=== PATIENT | female | born 1985 ===

== ENCOUNTER → 2018-01-22 | Outpatient (CLI) | payer OTHER ==
[~2018-01-22] MED LIST: PREN-127 PO
[2018-01-22 10:10] LABS: PLATELET COUNT, AUTOMATED 282 K/uL (150-450)
== END ==
LOC: LAB 09:44
PROVIDERS: ATTEND Obstetrics & Gynecology
DX: Z34.91 Encounter for supervision of normal pregnancy, unspecified, first trimester (principal); R82.79 Other abnormal findings on microbiological examination of urine
CPT/HCPCS: 36415; 85025; 86592; 86762; 86850; 86900; 86901; 87088; 87340

== ENCOUNTER → 2018-05-03 | Outpatient (CLI) | payer OTHER ==
--- NOTE | 2018-05-03 14:01 | RADIOLOGY IMAGING REPORT ---
FACILITY: [facility] - [place] PATIENT NAME: Ethel Hoang : 1985 MR: [id number] V: [id number] EXAM DATE: ORDERING PHYSICIAN: JUSTIN VELA TECHNOLOGIST: Location: [facility] - [place] Patient: Ethel Hoang : 1985 Visit/Account:[id number] Date of Sevice: 05/03/2018 OB ANATOMICAL SURVEY HISTORY: Anatomic survey COMPARISON: None. TECHNIQUE: Transabdominal imaging was performed for assessment of the fetus and maternal pelvic s tructures. Transvaginal imaging was not performed. FINDINGS: Intrauterine gestations: One. presentation: The head is projecting towards the cervix and slightly to the maternal righ t. heart rate: 143 bpm. Amniotic fluid volume: Mild polyhydramnios; MORENA 20.03 cm; MVP 6 cm. Placenta: Anterior and towards the right. Uterus: Gravid, otherwise grossly unremarkable where visualized. Maternal adnexa/ovaries: Grossly unremarkable, ovaries not visualized. Cervix: Grossly long and closed. Gestational Parameters: BPD: 4.62 cm, 42nd percentile HC: 17.28 cm, 28th percentile AC: 14.83 cm, 43rd percentile FL: 3.38 cm, 59th percentile Average ultrasound age (AUA): 20 weeks/ two days Estimated age based on LMP: 20 weeks/ one days Estimated weight (EFW): 343 grams +/- 50 grams Anatomic Survey: Intracranial structures, 4-chamber heart, stomach, kidneys, urinary bladder, spine, 3-vessel cord and cord insertion are unremarkable. Two upper and two lower extremities visualized. IMPRESSION: Single viable fetus with the head presenting towards the cervix and slightly towards the maternal rig ht. The estimated gestational age by measurements is 20 weeks and two days. Estimated weight is 343 g +/- 50 grams. There is mild polyhydramnios with an amniotic fluid index of 20.03 cm Report Dictated By: Elle Sy MD at 05/03/2018 1:47 PM Report E-Signed By: Elle Sy MD at 05/03/2018 1:57 PM WSN:[email or web address]
== END ==
LOC: RAD 09:24
PROVIDERS: ATTEND Obstetrics & Gynecology
DX: Z02.9 Encounter for administrative examinations, unspecified (principal)
CPT/HCPCS: 76811

== ENCOUNTER → 2018-07-02 | Outpatient (CLI) | payer OTHER ==
[~2018-07-02] MED LIST changes: +DIPH0.5D12 IM; +FLU60VIA41 IM
[2018-07-02 09:56] LABS: PLATELET COUNT, AUTOMATED 248 K/uL (150-450)
== END ==
LOC: LAB 08:50
PROVIDERS: ATTEND Student in an Organized Health Care Education/Training Program
DX: Z34.92 Encounter for supervision of normal pregnancy, unspecified, second trimester (principal)
CPT/HCPCS: 36415; 82950; 85025

== ENCOUNTER → 2018-08-27 | Outpatient (CLI) | payer OTHER | LOC: LAB 09:23 | PROVIDERS: ATTEND Advanced Practice Midwife | DX: Z34.93 Encounter for supervision of normal pregnancy, unspecified, third trimester (principal) | CPT/HCPCS: 87081 ==

== ENCOUNTER 2018-09-05 06:59 | Inpatient (IN) | payer OTHER ==
[~2018-09-05] VITALS: Ht 160 cm; Wt 62.1 kg
[2018-09-05 07:20] VITALS: BP 97/75
--- NOTE | 2018-09-05 13:26 | Labor Progress Note ---
Labor Subjective Progress Notes Subjective Pt arrived to L&D this am after SROM at home last night 09/04 at 2300. She reports clear fluid. Feeling Movement?: Yes Vaginal Discharge/Fluid: Clear Fluid Labor Pain: Mild Neurological: No Headache Eyes: No Visual Disturbances Labor Objective Vital Signs Vital Signs Date Time Temp Pulse Resp B/P (MAP) Pulse Ox O2 Delivery O2 Flow Rate FiO2 09/05/18 07:20 98.0 101 18 97/75 (82) 95 Room Air Vaginal Discharge/Fluid?: Clear Fluid Cervical Dialation: 3 Cervical Effacement (%): 70 Cervical Consistency: Soft Cervical Position: Mid Station: -2 Presentation: Vertex Uterine Contraction Strength: Mild UC Resting Tone: Soft Fetus Estimated Weight(grams): 3200 Heart Tone Variabilty: Moderate FHT Accelerations: 15X15 FHT Decelerations: None FHT Category: I (Intermitent monitoring) General Exam General Appearance: Alert/Awake/No Acute Distress ENT: Normal Neck: No Masses Cardiovascular: Normal Rhythm & Peripheral Pulses Abdomen: Gravid - Non-Tender Assessment and Plan Hospital Day: 1 PUBLIC HEALTH SPECIALIST Assessment: Stable PUBLIC HEALTH SPECIALIST Plan: Routine Labor/Induct Care Problems: (1) PROM (premature rupture of membranes) Status: Acute Assessment & Plan: Assessment/Plan: GORAN is a 33 y.o. at 37w0d wks with an Estimated Date of Delivery: 09/19/18 dated by LMP and early US Labor state: Not in labor well-being: Category I FHT: intermittent monitoring for low risk Maternal well-being: VS, afebrile, normotensive, PROM X 15 hours @ home for large amount of clear fluid at home last virgil 09/04/18 @ 2300. PNL: GBS neg, Type/Rh AB+, rubella immune Pain Management: desires an unmedicated , comfortable now Feed: Breast PPBCM: unsure at this time c/b: Anticipate progression of labor with pitocin augmentation, re-evaluate in 2-3 hours or prn Problem Qualifiers (1) PROM (premature rupture of membranes): PROM onset of labor timing: unspecified duration between rupture of membranes and onset of labor PROM gestational age: full term Qualified Codes: O42.92 - Full-term premature rupture of membranes, unspecified as to length of time between rupture and onset of labor ROSA CARBONE CNM Sep 05, 2018 13:26
--- NOTE | 2018-09-05 13:29 | Labor Progress Note ---
Labor Subjective Progress Notes Subjective Comfortable. Not feeling any contractions. Doesn't want any other interventions at this time. Vaginal Discharge/Fluid: Bloody Show, Clear Fluid Labor Pain: Mild Neurological: No Headache, No Other Eyes: No Visual Disturbances Labor Objective Vital Signs Vital Signs Date Time Temp Pulse Resp B/P (MAP) Pulse Ox O2 Delivery O2 Flow Rate FiO2 09/05/18 07:20 98.0 101 18 97/75 (82) 95 Room Air Vaginal Discharge/Fluid?: Clear Fluid Cervical Dialation: 3 Cervical Effacement (%): 70 Presentation: Vertex Uterine Contractions(Q min): 0 Uterine Contraction Strength: Mild Fetus Heart Tones: 135 Assessment and Plan DIRECTOR OF CONTENT AND PROGRAMMING Assessment: Stable DIRECTOR OF CONTENT AND PROGRAMMING Plan: Routine Labor Care Problems: (1) PROM (premature rupture of membranes) Status: Acute Assessment & Plan: Discussed care with Leonor ANDREWS. Agree with plan to augment with either cytotec or oxytocin as patient is now 14 hours with no cervical change. GARTH JACOBS DO Sep 05, 2018 13:29
[2018-09-05] MEDS ORDERED: FAMOTIDINE(*) 20MG/50ML PREMIX 50 ML IVPB PRN (13:34)
[2018-09-05] MEDS ORDERED: ceFAZolin(*) 2GM/D5W 50ML 50 ML IVPB PRN (13:34)
[2018-09-05] MEDS ORDERED: DLR(*) 1000 ML BAG 1,000 ML IV SCH (13:34)
[2018-09-05] MEDS ORDERED: OXYTOCIN 30 UNIT/D5LR 500 ML 500 ML IV PRN (13:34)
[2018-09-05] MEDS ORDERED: LIDOCAINE/SOD BICARB 8.4% SYR SC PRN (13:35)
[2018-09-05] MEDS ORDERED: ACETAMINOPHEN 325 MG TAB PO PRN ×2 (13:35→21:55)
[2018-09-05] MEDS ORDERED: ZOLPIDEM TARTRATE 5 MG TAB PO PRN (13:35)
[2018-09-05] MEDS ORDERED: LIDOCAINE 1% LOCAL 300 MG/30ML INJ PRN (13:35)
[2018-09-05] MEDS ORDERED: TERBUTALINE SULF 1 MG/ML VIAL SUBQ PRN (13:35)
[2018-09-05] MEDS ORDERED: METOCLOPRAMIDE 10 MG/2 ML SDV IVP PRN (13:35)
[2018-09-05] MEDS ORDERED: fentaNYL CITR 100 MCG/2 ML AMP IVP PRN (13:35)
[2018-09-05] MEDS ORDERED: LIDOCAINE/SOD BICARB 8.4% SYR ONE (13:37)
--- NOTE | 2018-09-05 13:52 | History & Physical ---
History of Present Illness Age of Patient: 33 : 3 Para or TPAL: 1 EDC per LMP: Sep 19, 2018 Chief Complaint PROM at home for clear fluid at 2300 09/04/18 History Patient's Blood Type: AB Positive Rubella Status: Immune Group B Strep Screen: Negative Obstetrical History: vacuum with prior Allergies: Coded Allergies: No Known Drug Allergies (Unverified , 01/22/18) Family History: Patient reports no known family medical history. Med Rec Home Meds Reported Medications Vits W-Ca,Fe,Fa(<1MG) ( VITAMINS) 1 Each Tablet, 1 EACH PO DAILY, TAB 01/22/18 Review of Systems Constitutional: No Fever Eyes: No Vision Change Cardiovascular: No Chest Pain Respiratory: No Shortness of Breath Gastrointestinal: No Nausea, No Vomiting Genitourinary: No Dysuria Musculoskeletal: No Pain Psychiatric: No Anxiety Other Leaking of clear fluid since last virgil at home at 2300 09/04/18 Exam General Exam Vital Signs Vital Signs Date Time Temp Pulse Resp B/P (MAP) Pulse Ox O2 Delivery O2 Flow Rate FiO2 09/05/18 07:20 98.0 101 18 97/75 (82) 95 Room Air General Apperance: Alert/Awake/No Acute Distress Neuro: No Gross deficits Eyes: Normal Extraocular Movement & Vison, PERRLA ENT: Normal Cardiovascular: Regular Rate and Rhythm Respiratory: No Respiratory Distress, Clear to Auscultation Abdomen: Gravid - Non-Tender : Normal Musculoskeletal: No Weakness/Pain Extremities: No Cyanosis,Clubbing or Edema Integumentary: Skin Intact without Lesions or Rash Psychological: Alert & Oriented X3, Appropriate Mood & Affect Vaginal Discharge/Fluid?: Clear Fluid Cervical Dialation: 3 Cervical Effacement (%): 70 Cervical Consistency: Soft Station: -2 Presentation: Vertex Uterine Contraction Strength: Mild Fetus Feeling Movement?: Yes Estimated Weight(grams): 3200 Heart Tones: 130 Heart Tone Variabilty: Moderate FHT Accelerations: 15X15 FHT Decelerations: None FHT Category: I Medical Decision Making Data Points Result Diagram: 09/05/18 1358 Assessment and Plan Hospital Day: 1 DEPUTY [place] Assessment: Stable DEPUTY [place] Plan: Routine Labor Care Problems: (1) PROM (premature rupture of membranes) Assessment & Plan: Plan to wait until 11am to see if labor will start on it's own. Encourage ambulation, nutrition and hydration. Reviewed possible augmentation options R/B/A, cytotec and pitocin Problem Qualifiers (1) PROM (premature rupture of membranes): PROM onset of labor timing: unspecified duration between rupture of membranes and onset of labor PROM gestational age: full term Qualified Codes: O42.92 - Full-term premature rupture of membranes, unspecified as to length of time between rupture and onset of labor ROSA CARBONE CNM Sep 05, 2018 13:24
[2018-09-05 14:07] LABS: PLATELET COUNT, AUTOMATED 237 K/uL (150-450)
[2018-09-05] MEDS: LR(*) 1000 ML BAG 1,000 ML IV PRN ×2 (14:22→17:37)
[2018-09-05] MEDS ORDERED: BUPIVACAINE 0.5% INJ 30ML VIAL EPI PRN (15:20)
[2018-09-05] MEDS ORDERED: LIDOCAINE/PF 2% 200MG/10ML AMP 200 MG/10 ML AMPUL EPI PRN (15:20)
[2018-09-05] MEDS ORDERED: fentaNYL CITR 100 MCG/2 ML AMP IT PRN (15:20)
[2018-09-05] MEDS ORDERED: FENTANYL/ROPIVACAINE 100 ML BAG EPI PRN (15:20)
[2018-09-05] MEDS ORDERED: LIDO/EPI 2% MPF 1:200,000 20ML EPI PRN (15:20)
[2018-09-05] MEDS ORDERED: BUPIVACAINE 0.25% MPF INJ EPI PRN (15:20)
[2018-09-05] MEDS ORDERED: ONDANSETRON 4 MG/2 ML VIAL ONE (16:58)
[2018-09-05] MEDS ORDERED: EPIDURAL KEYS XX PRN (18:00)
--- NOTE | 2018-09-05 18:10 | Anesthesia OB Pre-Anes Eval ---
History of Present Illness Anesthesia Start Date: Sep 05, 2018 Anesthesia Start Time: 17:11 OB Anesthesia Diagnosis: spontaneous labor, spontaneous ROM EDC: Sep 19, 2018 : 3 Para: 1 Vital Signs: Vital Signs 09/05/18 07:20 Temp 98.0 Pulse 101 Resp 18 B/P (MAP) 97/75 (82) Pulse Ox 95 O2 Delivery Room Air Pain Ratin Result Diagram: 09/05/18 1358 Height (Inches): 63.00 Weight (Pounds): 137 Past Medical History Medical History: no pertinent history Previous Anesthesia: epidural Attended Childbirth Classes?: No Hx Anesthesia Reactions: No Hx Family Anesthesia Reaction: No Current Medications: pitocin Home Meds Reported Medications Vits W-Ca,Fe,Fa(<1MG) ( VITAMINS) 1 Each Tablet, 1 EACH PO DAILY, TAB 01/22/18 Allergies: Coded Allergies: No Known Drug Allergies (Unverified , 01/22/18) Anesthesia OB ROS Neurological: No migraines/headaches, No seizures, No neuropathy, No other ENT: Denies Tooth caps, Denies Loose teeth, Denies Chipped teeth, Denies Dentures, Denies Bridges, Denies Retainers, Denies Veneers, Denies Implants, Denies Tongue ring, Denies Other Pulmonary: No asthma, No smoker (pks/day/yrs), No other Airway Class: ll Cardiovascular ROS: No edema, No arrhythmia, No other GI ROS: clear liquids Last Solids Date: Sep 05, 2018 Last Solids Time: 13:30 Endocrine ROS: No diabetes, No gestational diabetes, No thyroid disorder, No other Musculoskeletal ROS: No low back pain, No low back injury, No scoliosis, No other ASA Classification: 2 Assessment and Plan Anesthesia Plan: MADAI CAMPA CRNA Sep 05, 2018 18:10
--- NOTE | 2018-09-05 18:10 | Labor Progress Note ---
Labor Subjective Progress Notes Subjective Comfortable s/p epidural. Reports no pain. Feeling Movement?: Yes Vaginal Discharge/Fluid: Clear Fluid Labor Pain: Comfortable Neurological: No Headache, No Other Eyes: No Visual Disturbances Labor Objective Vital Signs Vital Signs Date Time Temp Pulse Resp B/P (MAP) Pulse Ox O2 Delivery O2 Flow Rate FiO2 09/05/18 07:20 98.0 101 18 97/75 (82) 95 Room Air Cervical Dialation: 6 Fetus Heart Tones: 130 Heart Tone Variabilty: Moderate FHT Accelerations: 15X15 FHT Decelerations: None FHT Category: I Other Result Diagram: 09/05/18 9806 Assessment and Plan Problems: (1) PROM (premature rupture of membranes) Status: Acute Assessment & Plan: Pt currently on Oxytocin for hypotonic contractions. Pt s/p epidural. Continue current management. Expect . Problem Qualifiers (1) PROM (premature rupture of membranes): PROM onset of labor timing: unspecified duration between rupture of membranes and onset of labor PROM gestational age: full term Qualified Codes: O42.92 - Full-term premature rupture of membranes, unspecified as to length of time between rupture and onset of labor GARTH JACOBS DO Sep 05, 2018 18:10
--- NOTE | 2018-09-05 18:13 | Procedure Note ---
Anesthetic Placement Note Anesthesia Plan: CSE Permit for Anesthesia Signed: Yes Anesthesia Technique: Patient Sitting Anesthesia Prep: Chlorhexidine Interspace: L 3-4 Local Anesthetic: 1% Lidocaine Amount Local - cc's: 3 Anesthesia Needle: 17g Touhy/Schliff Anesthesia Attempts: 1 Loss of Resistance: Normal Saline Depth of JON (cm): 5 Epidural Needle Placement: No CSF, No Blood, No Parasthesia Intrathecal Needle: 27 Gauge Pencan Cerebral Spinal Fluid: Yes, Clear Catheter Insertion (cm): 4 (9 cm at skin) Catheter Type: Lazar - Spring Wound Epidural Dressing: Tegaderm, Tape Anesthesia Tray: Lot Number ([id number]), Expiration Date (08/13), Reference Number ([id number]) Anesthesia Medications: Intrathecal Dose: mcg Fentanyl (10), mg Marcaine MPF (2.5), Time (1724) Epidural Test Dose: 1.5 Lido/Epi (1:200,000), Dose - mL (3), Time (1725), Negative Epidural Infusion: 0.2% Ropivicaine, With Fentanyl 2mcg/ml, Start Time: (1748) Epidural Pump Setting: Bolus Dose - mL (6), Lockout - Minutes (20), Maintenance Rate - mL/hr (6), Maximum per Hour - mL (24) Complications: None MADAI COVARRUBIAS CRNA Sep 05, 2018 18:13
--- NOTE | 2018-09-05 20:07 | Anesthesia Progress Note ---
Progress/Maintenance Anesthesia Note Date: Sep 05, 2018 Anesthesia Note Time: 20:00 Pain Intensity: 1 Pump: On Pump Rate (ML/HR): 6 Motor Level: Bending Knees-Bilateral Dilatation: 10 Position: Right MADAI COVARRUBIAS CRNA Sep 05, 2018 20:07
--- NOTE | 2018-09-05 21:15 | Anesthesia Progress Note ---
Assessment and Plan Anesthesia Plan: CSE Anesthesia Stop Day: Sep 05, 2018 Anesthesia Stop Time: 21:10 MADAI COVARRUBIAS CRNA Sep 05, 2018 21:15
[2018-09-05] MEDS ORDERED: HYDROCORTISONE 2.5% CR 30GM TB PR PRN (21:55)
[2018-09-05] MEDS ORDERED: APAP/HYDROCODONE 325/5 TAB PO PRN (21:55)
[2018-09-05] MEDS ORDERED: MAGNESIUM HYDROXIDE* 30ML UDCP PO PRN (21:55)
--- NOTE | 2018-09-05 22:05 | Labor Progress Note ---
Labor Subjective Progress Notes Subjective Pt delivered. comfortable. Labor Objective Vital Signs Vital Signs Date Time Temp Pulse Resp B/P (MAP) Pulse Ox O2 Delivery O2 Flow Rate FiO2 09/05/18 07:20 98.0 101 18 97/75 (82) 95 Room Air Vaginal Discharge/Fluid?: Bloody Show Cervical Dialation: 10 Cervical Effacement (%): 100 Other Result Diagram: 09/05/18 5338 Assessment and Plan ULTRA SOUND TECHNICIAN Assessment: Stable ULTRA SOUND TECHNICIAN Plan: Routine Post- Care Problems: (1) PROM (premature rupture of membranes) Status: Acute Assessment & Plan: I was present for the delivery of a live born female. I was also present for repair of a second degree midline laceration. Problem Qualifiers (1) PROM (premature rupture of membranes): PROM onset of labor timing: unspecified duration between rupture of membranes and onset of labor PROM gestational age: full term Qualified Codes: O42.92 - Full-term premature rupture of membranes, unspecified as to length of time between rupture and onset of labor GARTH JACOBS DO Sep 05, 2018 22:05
[2018-09-05 22:10] VITALS: BP 109/58
--- NOTE | 2018-09-05 22:28 | OB Delivery Note ---
Delivery Note Vaginal Delivery Type: Spont. Vaginal Delivery Delivery Date: Sep 05, 2018 Delivery Time: 21:00 Estimated Gestational Age(wks): 38 Delivery Anesthesia: Epidural Sex: Female Apgars: 1 Minute, 5 Minute Repair Needed: Perineal, Labial (right hemostatic), 2nd Degree Estimated Blood Loss: 300 Notes: POLI is a 33yo @ 38 who was admitted to the family care unit on 09/05/18 at 0730 for PROM. Cervical exam on admission was 3/ 70/-2. She had SROM at home on 09/05/18 at 2300 for a moderate amount of clear fluid. Pt was GBS negative. FHR CAT I primarily throughout first stage. Pt utilized continuous labor epidural primarily for pain management. Pt was completely dilated on 09/05/18 at 1956 and pt began pushing @ 2009 with good maternal effort for little over an hour. At 2100 pt had a NSVB of live female infant with Apgars 9/9. The head delivered spontaneously in the direct OA position and restituted PADILLA without a nuchal cord. The anterior shoulder was delivered atraumatically and the posterior shoulder followed. Body delivered easily. Face was wiped with nose and bulb suction and then placed on the mat ernal abdomen. The was dried and stimulated and noted to have a spontaneous cry and spontaneous movement of all 4 extremities. Cord was clamped X 2 by DARRYL after pulsations ceased and cut by Dr Griffith. Mother was in SF position. At 2105 the placenta and membranes delivered spontaneous and intact with a 3 vessel cord after gentle downward traction. 30 units of Pitocin was mervin hector in 500cc IV to firm the uterus and started immediately after placenta delivery. Upon inspection of the perineum a 2nd degree midline laceration was noted. A small right labial laceration was noted, but hemostatic. Repaired with a 3-0 vircyl under RAVEN in the usual fashion. Pt tolerated the procedure well. EBL 250 with fundus firm and minimal bleeding. Mom and baby were left in stable condition. I personally examined the patient and there are no unintended foreign objects in the vagina. Crys Mayberry CNM was present throughout the entire delivery as well as Dr. Silvano Griffith Benefits Specialist in Attendence: No Benefits Specialist in Attendence: No CRYS MAYBERRY CNM Sep 05, 2018 22:00
[2018-09-05 22:41] VITALS: BP 109/56
[2018-09-05] MEDS: DOCUSATE CALCIUM 240 MG CAP PO SCH (23:13)
[2018-09-05] MEDS: IBUPROFEN 800 MG TAB PO SCH (23:13)
[2018-09-05] MEDS: LANOLIN OINT 7 GM TUBE TP PRN (23:14)
[2018-09-05] MEDS: BENZOCAINE 20% 60 ML BTL TP PRN (23:15)
[2018-09-05] MEDS: GLYCERIN/WITCH HAZEL LEAF 1 PK TOP PRN (23:15)
[2018-09-06] VITALS (7 sets, daily range): BP systolic 91–117; BP diastolic 53–63
[2018-09-06] MEDS: DOCUSATE CALCIUM 240 MG CAP PO SCH ×2 (08:36→22:52)
[2018-09-06] MEDS: IBUPROFEN 800 MG TAB PO SCH ×2 (08:36→17:04)
--- NOTE | 2018-09-06 09:10 | OB/GYN Progress Note ---
OB Subjective Progress Notes Subjective Reports feeling well today without concerns. , son, mother and mother in law at bedside and all very supportive. Abdominal pain: minimal cramping and tolerable Perineal pain: having some pain, but it is tolerable with motrin and ice Vaginal bleeding: Minimal Flatus: + UTI symptoms: difficulty urinating on her own, currently has a quinn, no signs of infection Feeding modality: Breast Problems with breast feeding: baby has been very sleepy, so has not breastfed much t/o the night Bowel movement: no Ambulating: yes up and moving around well Preeclampsia symptoms: denies NGUYEN, vision changes, RUQ or epigastric pain Nausea/vomiting: none Other: experience: Ethel feels very happy about her . She feels that it was very positive GI: POS Flatus; NEG Nausea, NEG Vomiting, NEG Bowel Movement : Vaginal Bleeding, Scant Pain: Mild, Comfortable, Tolerating PO Pain Meds Neurological: No Headache Eyes: No Visual Disturbances OB Objective Physical Exam Vital Signs Date Time Temp Pulse Resp B/P (MAP) Pulse Ox O2 Delivery O2 Flow Rate FiO2 09/06/18 06:04 97.6 70 16 117/58 (77) Room Air 09/05/18 22:10 90 Intake and Output 09/06/18 07:00 Intake Total 1620 ml Output Total 2000 ml Balance -380 ml Intake Oral 120 ml IV Total 1500 ml Output Urine Total 2000 ml General Appearance: Alert/Awake/No Acute Distress Neurological: No Gross deficits Eyes: Normal Extraocular Movement & Vison, PERRLA ENT: Normal Neck: No Masses Cardiovascular: Normal Rhythm & Peripheral Pulses Respiratory: No Respiratory Distress, Clear to Auscultation, Other (breasts soft, nipples everted and + colostrum) : Other (having some urinary retention, currently has a quinn as of 0300am. Plan to remove at 0945 and have a bladder trial) Extremities: No Cyanosis,Clubbing or Edema Integumentary: Skin Intact without Lesions or Rash Psychological: Alert & Oriented X3, Appropriate Mood & Affect Result Diagram: 09/06/18 0548 Assessment and Plan Post Day: 1 GLOVE MAKER Assessment: Stable GLOVE MAKER Plan: Routine Post- Care, Advance Diet, Advance Activity, Discharge Home Tomorrow Problems: (1) PROM (premature rupture of membranes) Status: Acute (2) (normal spontaneous vaginal delivery) Onset Date: ~ 09/05/2018 Status: Acute (3) care and examination immediately after delivery Onset Date: ~ 09/05/2018 Assessment & Plan: Acute Urinary retention: Remove quinn this am @ 0945 and start a bladder trial with toileting every 2 hours, straight cath if not voided in 6 hours or increased in uterine bleeding : Encourage feeding at least every 3 hours Perineum: Continue motrin every 8 hours, encourage ice and narcotic if needed Plan for DC tomorrow am if voiding without difficulty Problem Qualifiers (1) PROM (premature rupture of membranes): PROM onset of labor timing: unspecified duration between rupture of membranes and onset of labor PROM gestational age: full term Qualified Codes: O42.92 - Full-term premature rupture of membranes, unspecified as to length of time between rupture and onset of labor ROSA CARBONE CNM Sep 06, 2018 09:10
[2018-09-06] MEDS ORDERED: LIDOCAINE 2% JELLY 5 ML TUBE TP PRN (15:25)
--- NOTE | 2018-09-06 15:58 | Anesthesia Post Eval Note ---
Anesthesia Post Eval Note Vital Signs 09/05/18 09/06/18 22:10 11:15 Temp 97.3 Pulse 76 Resp 16 B/P (MAP) 117/58 (77) Pulse Ox 90 O2 Delivery Room Air Pt able to participate in Eval: Yes Cardiovascular Status: Satisfactory Respiratory Status: Satisfactory Pain Managment: Satisfactory PO Nausea/Vomiting: Satisfactory Temperature Management: Satisfactory Mental Status: Satisfactory, Alert, Oriented X3 Post-Op Hydration Status: Satisfactory, Tolerating PO Well Anesthesia Type: CSE Anesthesia Tolerance: having issues with not being able to void. Had same issues with last delivery. MADAI COVARRUBIAS CRNA Sep 06, 2018 15:58
[2018-09-07] MEDS: IBUPROFEN 800 MG TAB PO SCH ×2 (01:00→08:52)
[2018-09-07 04:17] VITALS: BP 100/62
[2018-09-07 08:30] VITALS: BP 110/63
[2018-09-07] MEDS: DOCUSATE CALCIUM 240 MG CAP PO SCH (08:52)
--- NOTE | 2018-09-07 10:17 | OB/GYN Discharge Summary ---
Discharge Summary Reason for Hosp/Final Diag: (1) PROM (premature rupture of membranes) Status: Acute (2) (normal spontaneous vaginal delivery) Onset Date: ~ 09/05/2018 Status: Acute Hospital Course & Plan: Non complicated and delivery. Acute urinary retention and being dc'd with a quinn (3) care and examination immediately after delivery Onset Date: ~ 09/05/2018 Hospital Course & Plan: Acute Urinary retention: Replace quinn this am as PVR is still too high. Encourage adequate fluid intake and nurse to teach quinn care at home. Plan to be seen on Monday for repeat bladder trial. : No concerns Perineum: Continue motrin every 8 hours, encourage ice and sitz baths for swelling and use prescribed narcotic if needed Plan for DC home today with quinn Reviewed signs and symptoms to call. Pt verbalizes her understanding Lates Vital Signs Vital Signs Date Time Temp Pulse Resp B/P (MAP) Pulse Ox O2 Delivery O2 Flow Rate FiO2 09/07/18 04:17 97.6 70 16 100/62 (75) 96 Room Air Weight (Pounds): 137 Result Diagram: 09/06/18 0548 Condition: Improved Discharge: Home Home Meds Active Scripts Ibuprofen (IBUPROFEN) 800 Mg Tablet, 1 TAB PO Q8H PRN for pain for 7 Days, #21 TAB 1 Refill Prov:ROSA CARBONE CNM 09/07/18 Hydrocodone Bit/Acetaminophen (NORCO 5-325 TABLET) 1 Each Tablet, 1 EACH PO Q4- 6H PRN for pain for 7 Days, #10 TAB 0 Refills Prov:ROSA CARBONE CNM 09/07/18 Reported Medications Vits W-Ca,Fe,Fa(<1MG) ( VITAMINS) 1 Each Tablet, 1 EACH PO DAILY, TAB 01/22/18 Follow up Referrals: 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 [employer] - In Two Weeks @ [facility] with ROSA CARBONE CNM Follow up in: 2 wks PO Discharge Diet: As Tolerates, Resume Prior Admit Diet, Increase Fluid Intake Discharge Activity: As Tolerates, Pelvic Rest Problem Qualifiers (1) PROM (premature rupture of membranes): PROM onset of labor timing: unspecified duration between rupture of membranes and onset of labor PROM gestational age: full term Qualified Codes: O42.92 - Full-term premature rupture of membranes, unspecified as to length of time between rupture and onset of labor ROSA CARBONE CNM Sep 07, 2018 07:38
[2018-09-07] MEDS ORDERED: HYDR-653 PO (10:22)
[2018-09-07] MEDS ORDERED: IBUP800T37 PO (10:22)
[2018-09-07] MEDS ORDERED: NITROFURANTOIN MONO 100 MG PO SCH (11:20)
[2018-09-07] MEDS ORDERED: NITR-105 PO (11:21)
--- NOTE | 2018-09-07 12:03 | Antimicrobial Stewardship ---
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
[2018-09-07] MEDS: GLYCERIN/WITCH HAZEL LEAF 1 PK TOP PRN (14:24)
[2018-09-07] MEDS: LANOLIN OINT 7 GM TUBE TP PRN (14:25)
[2018-09-07] MEDS: BENZOCAINE 20% 60 ML BTL TP PRN (14:25)
== END 2018-09-07 14:45 | disposition home or self-care (01) | DRG 807 ==
LOC: OB 06:59
PROVIDERS: ADMIT Student in an Organized Health Care Education/Training Program; ATTEND Student in an Organized Health Care Education/Training Program
PROC: 10E0XZZ Delivery of Products of Conception, External Approach (ICD-10-PCS; principal; 2018-09-05)
PROC: 0KQM0ZZ Repair Perineum Muscle, Open Approach (ICD-10-PCS; 2018-09-05)
DX: O42.92 Full-term premature rupture of membranes, unspecified as to length of time between rupture and onset of labor (principal); Z37.0 Single live birth; O70.1 Second degree perineal laceration during delivery; Z3A.38 38 weeks gestation of pregnancy
CPT/HCPCS: 36415; 81001; 84112; 85025; 85027; 86703; 86850; 86900; 86901; 87077; 87088; 87186; J2405; J2590; J7120